=== PATIENT | male | born 1995 | race Caucasian/White ===

== ENCOUNTER 2016-08-07 10:01 | Emergency (ER) | payer OTHER ==
[~2016-08-07] VITALS: Ht 180.3 cm; Wt 80.0 kg
[2016-08-07] MEDS ORDERED: SOD CHLORIDE 0.9% 1,000 ML IV STA (10:13)
[2016-08-07] MEDS ORDERED: LEVETIRACETAM 1000 MG (PMX) 100 ML IVPB STA (10:13)
[2016-08-07 10:22] VITALS: Ht 180.3 cm; Wt 80.0 kg
[2016-08-07 10:34] LABS: ADD SCAN DIFF NO
[2016-08-07 10:39] LABS: BASOPHILS % 0.4 % (0.0-2.0); EOSINOPHILS # 0.1 10^3/ul (0.0-0.5); EOSINOPHILS % 1.6 % (0.0-7.0); HEMATOCRIT 50.4 % (42.0-52.0); HEMOGLOBIN 16.9 g/dl (14.0-18.0); LYMPHOCYTES # 3.1 10^3/ul (0.8-2.9); LYMPHOCYTES % 45.3 % (18.0-55.0); MEAN CORPUSCULAR HEMOGLOBIN 31.7 pg (29.0-33.0); MEAN CORPUSCULAR HGB CONC 33.5 g/dl (32.0-37.0); MEAN CORPUSCULAR VOLUME 94.6 fl (72.0-104.0); MEAN PLATELET VOLUME 11.7 fl (7.4-10.4); MONOCYTE # 0.5 10^3/ul (0.3-0.9); MONOCYTES % 6.8 % (0.0-13.0); NEUTROPHIL # 3.1 10^3/ul (1.6-7.5); NEUTROPHILS % 45.3 % (30.0-74.0); PLATELET COUNT 194 10^3/UL (140-415); RED BLOOD COUNT 5.33 10^6/ul (4.70-6.10); RED CELL DISTRIBUTION WIDTH 12.2 % (11.5-14.5); WHITE BLOOD COUNT 6.8 10^3/ul (4.8-10.8)
[2016-08-07 10:45] LABS: ALBUMIN 5.3 g/dl (3.3-4.9); CHLORIDE 102 mmol/L (97-110); POTASSIUM 3.9 mmol/L (3.5-5.1); SODIUM 143 mmol/L (135-144)
[2016-08-07 10:47] LABS: CREATININE 0.86 mg/dl (0.61-1.24)
[2016-08-07 10:48] LABS: ALANINE AMINOTRANSFERASE 14 IU/L (13-69); ALBUMIN/GLOBULIN RATIO 1.76; ALKALINE PHOSPHATASE 84 IU/L (42-121); ANION GAP 26 (8-16); ASPARTATE AMINO TRANSFERASE 24 IU/L (15-46); BILIRUBIN,INDIRECT 0.5 mg/dl (0-1.1); BILIRUBIN,TOTAL 0.5 mg/dl (0.2-1.3); BLOOD UREA NITROGEN 19 mg/dl (7-20); CALCIUM 9.6 mg/dl (8.4-10.2); CARBON DIOXIDE 19 mmol/L (21-31); GLUCOSE 122 mg/dl (70-220); TOTAL PROTEIN 8.3 g/dl (6.1-8.1)
[2016-08-07] MEDS ORDERED: PHEN300C2 PO (10:55)
[2016-08-07] MEDS ORDERED: DICLOFENAC SODIUM 37.5 MG/ML VIAL IV STA (12:40)
--- NOTE | 2016-08-07 12:40 | ERD ---
ER Documentation Chief Complaint Date/Time DATE: 08/07/16 TIME: 12:33 Chief Complaint seizure tonic/clonic, no trauma HPI This is a very pleasant 20-year-old male that presents to the emergency department after he had a witnessed tonic-clonic seizure by his landlord. The patient states he had been walking to the bathroom when he had the seizure activity. He did not hit his head but denies a headache at this time. He cannot remember his antiepileptic medications that he takes as he is a known seizure disorder, but indicated he missed taking his medications over the past 24 hours. He did not lose urinary incontinence or bite his tongue. He was brought in by EMS. His last seizure activity was 4 months ago. He has had no recent fever shaking or chills. ROS All systems reviewed and are negative except as per history of present illness. Medications Home Meds Reported Medications Phenytoin* Sodium Extended (Dilantin*) 300 Mg Capsule, 500 MG PO BID, CAP 08/07/16 Allergies Allergies: Coded Allergies: No Known Allergy (Unverified , 08/07/16) PMhx/Soc History of Surgery: No Anesthesia Reaction: No Hx Neurological Disorder: Yes (seizures) Hx Respiratory Disorders: No Hx Cardiac Disorders: No Hx Psychiatric Problems: No Hx Miscellaneous Medical Probl: No Hx Alcohol Use: No Hx Substance Use: No Hx Tobacco Use: No Smoking Status: Never smoker Physical Exam Vitals Vital Signs Date Time Temp Pulse Resp B/P Pulse Ox O2 Delivery O2 Flow Rate FiO2 08/07/16 10:22 98.4 99 19 151/84 100 Physical Exam Constitutional:Well-developed. Well-nourished. HEENT:Normocephalic. Atraumatic.Pupils were equal round reactive to light. Moist mucous membranes.No tonsillar exudates. No nasoseptal hematoma. No hemotympanum. No blood present within the oropharynx Neck: No nuchal rigidity. No lymphadenopathy. No posterior cervical spine tenderness or step-offs. Respiratory: Not using accessory muscles of respiration.Lungs were clear to auscultation bilaterally. No rhonchi. No rales. No wheezing. Cardiovascular: Regular rate regular rhythm.No murmurs. No rubs were appreciated.S1, S2 normal. Distal pulses are palpable 2+ bilaterally. GI: Abdomen was soft. Nontender. Non Distended. No pulsatile abdominal masses or bruits. No rebound. No guarding. Bowel sounds were present and normal. Muscle skeletal: Full range of motion of both the upper and lower extremities bilaterally.Normal muscle tone.No assymetrical calf tenderness or swelling. Skin: No petechia, no purpura. No lesions on the palms or the soles of the feet. No maculopapular rash. NEURO: Patient was alert, awake, orientated x3.No facial droop. Gait observed and normal with no ataxia.Speech had regular rate and rhythm. No focal neurological deficits. Result Diagram: 08/07/16 1009 08/07/16 1009 Results 24 hrs Laboratory Tests Test 08/07/16 10:09 White Blood Count 6.810^3/ul Red Blood Count 5.3310^6/ul Hemoglobin 16.9g/dl Hematocrit 50.4% Mean Corpuscular Volume 94.6fl Mean Corpuscular Hemoglobin 31.7pg Mean Corpuscular Hemoglobin Concent 33.5g/dl Red Cell Distribution Width 12.2% Platelet Count 71114^3/UL Mean Platelet Volume 11.7fl Neutrophils % 45.3% Lymphocytes % 45.3% Monocytes % 6.8% Eosinophils % 1.6% Basophils % 0.4% Nucleated Red Blood Cells % 0.0/100WBC Neutrophils # 3.110^3/ul Lymphocytes # 3.110^3/ul Monocytes # 0.510^3/ul Eosinophils # 0.110^3/ul Basophils # 0.010^3/ul Nucleated Red Blood Cells # 0.010^3/ul Sodium Level 143mmol/L Potassium Level 3.9mmol/L Chloride Level 102mmol/L Carbon Dioxide Level 19mmol/L Anion Gap 26 Blood Urea Nitrogen 19mg/dl Creatinine 0.86mg/dl Glucose Level 122mg/dl Calcium Level 9.6mg/dl Total Bilirubin 0.5mg/dl Direct Bilirubin 0.00mg/dl Indirect Bilirubin 0.5mg/dl Aspartate Amino Transf (AST/SGOT) 24IU/L Alanine Aminotransferase (ALT/SGPT) 14IU/L Alkaline Phosphatase 84IU/L Total Protein 8.3g/dl Albumin 5.3g/dl Globulin 3.00g/dl Albumin/Globulin Ratio 1.76 Phenytoin (Dilantin) Level < 3.0ug/ml Current Medications Medications (Trade) Dose Ordered Sig/Jake Route PRN Reason Start Time Stop Time Status Last Admin Dose Admin Sodium Chloride 1,000 ml @ 1,000 mls/hr Q1H STAT IV 08/07/16 10:13 08/07/16 11:12 DC 08/07/16 10:53 Levetiracetam (Keppra 1,000mg/ 100ml (Pmx)) 100 ml @ 400 mls/hr ONCE STAT IVPB 08/07/16 10:13 08/07/16 10:27 DC 08/07/16 10:52 Procedures/MDM This patient presented to the emergency department with a witnessed tonic- clonic seizure. Seizure precautions were administered and the patient was placed on cardiac care unit nurse. The patient had no electrolyte abnormalities. Obtained a Dilantin level as the patient could not remember the medication that he was taken from previous documentations it did indicate that the patient has been taking Dilantin and there is no concern for supratherapeutic Dilantin toxicity. The patient received IV Keppra in the emergency department. He was now complaining generalized myalgias and was given IV Toradol. The patient was discharged home in fair condition. They were instructed to return to the emergency department at any time if there was any worsening of their condition. The patient stated they would follow up with their PCP in the next 24-48 hours to initiate a suitable medication regimen under the care of their PCP as well as to allow their PCP to monitor any drug reactions. The patient was discharged home with prescriptions after they gave informed consent to the new medication. They were also fully informed by myself on the adverse effects and adverse drug interactions in order to provide adequate safeguards to prevent possible adverse reactions to medications. Departure Diagnosis: Primary Impression: Breakthrough seizure Condition: Serious ADAMARIS HINES Aug 07, 2016 12:40
[2016-08-07 13:01] VITALS: BP 133/74; PULSE 62; RESP 17
== END 2016-08-07 13:02 | disposition home or self-care (01) ==
LOC: E/R 10:01
DX: G40.909 Epilepsy, unspecified, not intractable, without status epilepticus (principal)
CPT/HCPCS: 80053; 80185; 85025; 96374; J1953; J7030; Z7502

== ENCOUNTER 2017-11-30 22:40 | Emergency (ER) | END 2017-12-01 01:30 | disposition home or self-care (01) ==